=== PATIENT | female | born 1985 ===

== ENCOUNTER 2019-10-28 22:16 | Outpatient (REF) | payer OTHER, SELFPAY ==
[2019-11-01 21:28] LABS: SARS-CoV-2 RNA Undetected (Undetected); SARS-CoV-2 Specimen Source Nasopharynx
== END 2019-10-28 22:36 ==
LOC: NCHCN 22:16
PROVIDERS: PCP Family Medicine; Visit Provider Family Medicine
DX: Z20.828 Contact with and (suspected) exposure to other viral communicable diseases (principal)
CPT/HCPCS: U0003

== ENCOUNTER 2019-12-19 15:04 | Outpatient (REF) | payer OTHER, SELFPAY ==
[2019-12-22 08:16] LABS: COVID-19 RT-PCR Result NEGATIVE (Negative)
== END 2019-12-19 15:24 ==
LOC: NCHCN 15:04
PROVIDERS: PCP Family Medicine; Visit Provider Family Medicine
DX: Z20.828 Contact with and (suspected) exposure to other viral communicable diseases (principal)
CPT/HCPCS: U0003

== ENCOUNTER 2020-03-30 11:14 | Outpatient (REF) | payer OTHER, SELFPAY ==
[2020-04-02 15:58] LABS: COVID-19 RT-PCR Result NEGATIVE (Negative)
== END 2020-03-30 11:34 ==
LOC: NCHCN 11:14
PROVIDERS: PCP Family Medicine; Visit Provider Nurse Practitioner Family
DX: Z11.59 Encounter for screening for other viral diseases (principal)
CPT/HCPCS: U0003

== ENCOUNTER 2021-01-07 09:38 | Outpatient (REF) | payer OTHER, SELFPAY ==
[2021-01-10 10:30] LABS: Lyme Ab w Rflx to Lyme Confirm Negative (Negative)
== END 2021-01-07 09:39 | disposition home or self-care (01) ==
LOC: LBN 09:38
PROVIDERS: PCP Family Medicine; Referring Provider Family Medicine; Visit Provider Family Medicine
DX: R21 Rash and other nonspecific skin eruption (principal)
CPT/HCPCS: 86618